=== PATIENT | female | born 1940 ===

== ENCOUNTER 2017-05-01 05:46 | Day surgery (SDC) | payer OTHER ==
[~2017-05-01 05:46] MED LIST: CLONAZEPAM0.5 MG PO; COLACE100 MG PO; COZAAR50 MG PO; PERCOCET 5-3251 EACH PO; SYNTHROID50 MCG PO; TOPROL XL25 M1 PO
[2017-05-01] MEDS ORDERED: PERCOCET 5-3251 EACH PO (11:14)
[2017-05-01] MEDS ORDERED: COLACE100 MG PO (11:14)
== END 2017-05-01 18:20 | disposition home or self-care (01) ==
LOC: CIR.AMB 05:46
DX: D04.5 Carcinoma in situ of skin of trunk (principal); K62.89 Other specified diseases of anus and rectum; D23.5 Other benign neoplasm of skin of trunk